=== PATIENT | male | born 2005 | race Caucasian/White ===

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

== ENCOUNTER 2024-01-22 01:18 | Emergency (ER) | payer MEDICAID, SELFPAY ==
[2024-01-22 01:19] VITALS: BP 132/70; PULSE 72; RESP 15; TEMP 36.6; O2SAT 99; BMI 23.2
--- NOTE | 2024-01-22 01:23 | EX.ED.DYSGE1 ---
HPI History of Present Illness Chief Complaint: General Illness Informant: patient Onset/Context/Timing Onset: Days (3) Context: Gradual Onset Timing: Continuous Quality: Burning Location: Throat Worsened by: Nothing Relieved by: Nothing Narrative Narrative: Patient presents with headache, nausea, and sore throat that has been getting worse over the past 3 days. Patient states it is gradually gotten worse. Patient states it is constant. Patient states his throat pain as burning. Patient states nothing makes it better and nothing makes it worse. Patient denies any fevers or chills. Patient denies any vomiting. Patient denies any visual changes or scotoma. Patient denies any shortness of breath or cough. Patient denies any urinary complaints. PFSH PFSH Medical History no medical history no medical history Home Medications ?Medication ?Instructions ?Recorded ?Last Taken ?Type naproxen 500 mg tablet (Naprosyn) 500 mg PO BID PRN pain #20 tabs 10/27/22 Unknown Rx Allergy/AdvReac Type Severity Reaction Status Date / Time No Known Allergies Allergy Verified 10/27/22 18:00 Surgical History no surgical history no surgical history Social History (Updated 01/22/24 @ 01:[address] Mesfin Willis, DO) Smoking Status: Current every day smoker tobacco type: e-cigarettes alcohol intake: current alcohol intake frequency: 0-2 drinks per day ROS ROS ED Constitutional Constitutional ED: Denies chills or fever(s) Eyes Eyes: Denies blurry vision or change in vision ENT ENT ED: Reports rhinorrhea and sore throat Cardiovascular Cardiovascular: Denies chest pain or palpitations Respiratory/Chest Respiratory/Chest: Denies cough or dyspnea Gastrointestinal Gastrointestinal: Reports nausea; Denies vomiting Genitourinary Genitourinary ED: Denies dysuria or hematuria Musculoskeletal Musculoskeletal: Denies back pain or neck pain Integumentary Denies abscess or rash Neurologic Neurologic: Reports headache(s); Denies weakness Allergic/Immunologic Allergic/Immunologic ED: Denies mouth swelling or urticaria EXAM Physical Exam Const Vital Signs: 01/22/24 01:19 01/22/24 01:22 Temperature 98 F Temperature Source Oral Pulse Rate 72 Respiratory Rate 15 Respiratory Pattern Normal Blood Pressure 132/70 H Blood Pressure Mean 90 Pulse Ox 99 Oxygen Delivery Method Room Air Positive well nourished and well developed General Appearance ED: well developed and NAD HEENT Reports moist mucous membranes HEENT Narrative: Oropharynx is clear. There are no exudates noted. Neck no lymphadenopathy, supple and no JVD Resp normal respiratory effort and clear to auscultation bilaterally Cardio regular rate and regular rhythm GI non-tender and non-distended Palpation: soft Neuro oriented x3, CN's II-XII intact bilaterally and no sensory deficits noted Sensorium / Orientation: alert Motor Exam: strength 5/5 throughout Psych mental status grossly normal MDM MDM MDM Narrative Medical decision making narrative: Differential diagnosis includes viral illness, pneumonia, dehydration, gastritis, tension headache, and sinus congestion. COVID-19, influenza, and RSV PCR will be obtained to assess for viral illness. Chest x-ray will be obtained to assess for pneumonia. CBC will be obtained to assess for leukocytosis and anemia. Basic metabolic profile will be obtained to assess for electrolyte abnormality and renal function. Lab Data Attestation: I reviewed the patient's lab results. Lab results narrative: CBC was reviewed and was within normal. Basic metabolic profile was reviewed and was within normal. COVID-19 PCR was reviewed and was negative. Influenza PCR was reviewed and was negative for influenza A and influenza B. RSV PCR was reviewed and was negative. Labs: Laboratory Results - last 24 hr 01/22/24 01:50 WBC 8.4 RBC 4.66 Hgb 13.6 Hct 40.1 MCV 86.1 MCH 29.2 MCHC 33.9 RDW Std Deviation 39.5 RDW Coeff of Marilu 12.8 Plt Count 246 MPV 9.5 Immature Gran % (Auto) 0.200 Neut % (Auto) 55.2 Lymph % (Auto) 35.7 Vance % (Auto) 7.2 Eos % (Auto) 1.3 Baso % (Auto) 0.4 Absolute Neuts (auto) 4.6 Absolute Lymphs (auto) 2.98 Nucleated RBC % 0 Sodium 139 Potassium 3.5 Chloride 104 Carbon Dioxide 30.0 Anion Gap 5 BUN 12 Creatinine 0.87 Estim Creat Clear Calc 158.40 Est GFR (MDRD) Af Amer 145 Est GFR (MDRD) Non-Af 120 BUN/Creatinine Ratio 13.8 Glucose 89 Calcium 8.7 Radiography Chest X-Ray - ED: 2 View, Read by ED Physician, Read by Radiologist and No Acute Disease Diagnostic Testing: Clinical Impression(s) from Imaging Studies Chest X-Ray 01/22/24 01:33 IMPRESSION: No radiographic evidence of acute cardiopulmonary disease. Electronically Signed: Ritchie Roque MD at 2:23 EDT Reading Location ID and State: [facility] / [place] , Service support , [place] and lateral chest x-ray was obtained. There are 2 views. On my independent interpretation, lung bynum are clear. There is normal cardiac silhouette. Bony thorax is normal. There is no acute process noted. Radiologist also interpreted the x-ray and agrees. Treatment and Re-Evaluation :: Patient was given IV fluids and Zofran. Patient was advised of his findings. Patient was advised that this may be a viral illness. Patient was instructed to follow-up with his primary care physician in 5 to 7 days. Patient was instructed to drink plenty of fluids. Patient understood and was agreeable with the plan. All questions were answered. Discharge Plan Triage Chief Complaint: General Illness ED Provider: Mesfin Willis Dx/Rx/DC Orders Clinical Impression: Viral illness, Elevated blood pressure reading without diagnosis of hypertension Instructions: ED Viral Syndrome (Adult) Prescriptions: No Action naproxen [Naprosyn] 500 mg tablet 500 mg PO BID PRN (Reason: pain) Qty: 20 0RF Primary Care Provider: Care Physician,No Primary Referrals: Bel Julien DO [Med Staff - Active Staff] - 5-7 Days Care Physician,No Primary [Primary Care Provider] - Print Language: Dominican Disposition Disposition: Home, Self Care
--- NOTE | 2024-01-22 01:33 | RAD_ITS ---
EXAM: XR CHEST, 2 VIEWS CLINICAL INDICATION: Cough Cough TECHNIQUE: Frontal and lateral views of the chest. COMPARISON: No relevant prior studies available. FINDINGS: LUNGS AND PLEURAL SPACES: Unremarkable. No consolidation or edema. No pneumothorax. No effusion. HEART: Unremarkable. Cardiac silhouette not enlarged. MEDIASTINUM: Central airways and mediastinal contour are unremarkable. BONES/JOINTS: Unremarkable. No acute fracture. SOFT TISSUES: Unremarkable. RAD/Chest PA and Lateral IMPRESSION: No radiographic evidence of acute cardiopulmonary disease. Electronically Signed: Ritchie Roque MD at 2:23 EDT Reading Location ID and State: [facility] / [place] , Service support ,
[2024-01-22] MEDS: 0.9% Normal Saline (1000mL) 1,000 ML 1000 ML IV (01:49)
[2024-01-22] MEDS: Ondansetron 4 MG/2 ML Vial IV (01:49)
[2024-01-22 02:04] LABS: Absolute Lymphocyte Count 2.98 X10^3/uL (0.83-4.51); Absolute Neutrophil Count 4.6 X10^3/uL (2.0-7.7); Basophil# 0.03 X10^3/uL; Basophil% 0.4 % (0-1); Eosinophil# 0.11 X10^3/uL; Eosinophils% 1.3 % (0-5); Hematocrit 40.1 % (40-54); Hemoglobin 13.6 g/dL (13.0-16.5); Lymphocyte # 2.98 X10^3/ul (0.83-4.51); Lymphocyte % 35.7 % (19-41); Mean Corp Hgb Conc 33.9 g/dL (32-36); Mean Corpuscular Hgb 29.2 pg (27.0-32.0); Mean Corpuscular Volume 86.1 fL (80-94); Mean Platelet Vol. 9.5 fl (6.2-12.0); Monocyte% 7.2 % (0-10); NRBC Flagged by Analyzer 0 % (0-5); Neutrophil # 4.61 X10^3/uL (2.7-7.7); Neutrophil % 55.2 % (47-70); Platelet Count 246 K/mm3 (150-450); RBC Distribution Width CV 12.8 % (11.6-14.6); RBC Distribution Width SD 39.5 fl (35.1-43.9); Red Blood Count 4.66 M/mm3 (4.6-6.2); White Blood Count 8.4 K/mm3 (4.4-11.0)
[2024-01-22 02:18] LABS: Anion Gap 5 (5-15); BUN 12 mg/dL (7-18); BUN/Creat Ratio 13.8 RATIO (10-20); Calcium,Total 8.7 mg/dL (8.5-10.1); Chloride 104 mmol/L (98-107); Creatinine, Serum 0.87 mg/dL (0.70-1.30); EST Glomerular Filtration Rate 120 mL/min (>60); Est Glom Filt Rate - Afr Amer 145 mL/min (>60); Glucose 89 mg/dL (74-106); Potassium 3.5 mmol/L (3.5-5.1); Sodium Level 139 mmol/L (136-145)
[2024-01-22 03:19] VITALS: BP 115/64; PULSE 50; RESP 16; O2SAT 98
[2024-01-22 03:45] VITALS: BP 115/64; PULSE 56; RESP 16; TEMP 36.6; O2SAT 100
== END 2024-01-22 03:46 | disposition home or self-care (01) ==
PROVIDERS: Emergency Provider Emergency Medicine; Visit Provider Emergency Medicine
DX: B34.9 Viral infection, unspecified (principal); R03.0 Elevated blood-pressure reading, without diagnosis of hypertension; F17.290 Nicotine dependence, other tobacco product, uncomplicated
CPT/HCPCS: 71046; 80048; 85025; 87631; 99283; J7030; J2405

== ENCOUNTER 2024-02-04 11:36 | Emergency (ER) | payer MEDICAID, SELFPAY ==
[2024-02-04 11:37] VITALS: BP 128/78; PULSE 78; RESP 16; TEMP 35.9; O2SAT 98; BMI 21.4
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
[2024-02-04] MEDS: Ibuprofen 600 MG Tablet PO (12:02)
--- NOTE | 2024-02-04 12:07 | EDS_ITS ---
HPI History of Present Illness Chief Complaint: Lower Extremity Injury Informant: patient Narrative Narrative: Inversion injury right lower extremity ankle and foot yesterday while at [employer]. Jumping over the railing when he came down. No head injuries. Increasing swelling and pain today. Tried icing yesterday. No medication taken. Denies history of gastric ulcers or kidney injury. Denies history of fractures. No paresthesias. PFSH PFSH Home Medications ?Medication ?Instructions ?Recorded ?Last Taken ?Type naproxen 500 mg tablet (Naprosyn) 500 mg PO BID PRN pain #20 tabs 10/27/22 Unknown Rx Allergy/AdvReac Type Severity Reaction Status Date / Time No Known Allergies Allergy Verified 02/04/24 11:36 Social History Smoking Status: Current every day smoker tobacco type: e-cigarettes alcohol intake: current alcohol intake frequency: 0-2 drinks per day ROS ROS ED Constitutional Constitutional ED: Denies chills, fever(s) or sweats ENT ENT ED: Denies dysphagia Cardiovascular Cardiovascular: Denies chest pain Respiratory/Chest Respiratory/Chest: Denies cough Gastrointestinal Gastrointestinal: Denies abdominal pain Musculoskeletal Musculoskeletal: Reports extremity pain; Denies back pain or neck pain Neurologic Neurologic: Denies paresthesias or weakness EXAM Physical Exam Const Vital Signs: 02/04/24 11:37 02/04/24 12:37 Temperature 96.6 F L 97.5 F L Temperature Source Temporal Pulse Rate 78 75 Respiratory Rate 16 16 Blood Pressure 128/78 H 128/78 H Blood Pressure Mean 94 94 Pulse Ox 98 98 Oxygen Delivery Method Room Air Positive well nourished and well developed General Appearance ED: well developed and NAD HEENT Reports moist mucous membranes normocephalic and atraumatic Eyes EOMs intact bilaterally and conjunctivae normal General Eye ED: Yes normal appearance of both eyes Neck no lymphadenopathy and supple General: Negative for tenderness Chest Wall Chest: Negative for tenderness Resp normal respiratory effort and normal air movement Effort and Inspection: symmetric chest movement; Negative for respiratory distress Cardio regular rate, regular rhythm and no murmurs Peripheral Pulses: pulses 2+ throughout GI normal to inspection, nondistended, normoactive bowel sounds and non-tender Palpation: Negative for guarding or rebound tenderness present Back/Spine no CVA tenderness and no thoracic nor lumbar tenderness Extremity Extremity Narrative: Right lower extremity negative logroll knee extensor intact no proximal fibular tenderness. No malleoli tenderness bilaterally there is swelling lateral ankle at ATFL, there is midfoot tenderness. There is no proximal fifth base tenderness. There was swelling lateral foot. Skin was intact. Soft compartments. Neuro vas intact distally. General Extremety ED: Yes edema and tenderness General Extremity: edema Neuro oriented x3 and no sensory deficits noted Sensorium / Orientation: awake and alert Skin no rashes or lesions noted and no wounds MDM MDM MDM Narrative Medical decision making narrative: Interventions / MDM: Differential diagnosis: Ankle sprain, foot sprain Diagnosis considered but do not suspect: Fracture however x-ray negative. My EKG interpretation: N/A Imaging independently reviewed and interpreted by myself: Three-view x-ray right ankle: No fracture noted. 3 view right foot: Soft tissue swelling without any fractures. External documents reviewed: N/A Test considered but not ordered:N/A ED course: Ice was continued ibuprofen given. X-ray right ankle and foot ordered for further evaluation. 1205: X-ray interpreted myself shows no fractures. James wrap Aircast crutches will be provided continue Motrin. Re-evaluation: stable Disposition discussed with patient/family/significant other: Patient Case discussed with consulting clinician: N/A This note was generated with [employer] dictation software. It may contain incorrect words, spelling, and punctuation that were not noted in checking the note before signing. Radiography Diagnostic Testing: Clinical Impression(s) from Imaging Studies Ankle X-Ray 02/04/24 11:52 IMPRESSION: Normal x-ray examination of the ankle. Electronically Signed: Quinton oCnley MD at 12:12 EDT , Foot X-Ray 02/04/24 11:52 IMPRESSION: Soft tissue swelling. Electronically Signed: Quinton Cnoley MD at 12:11 EDT , Discharge Plan Triage Chief Complaint: Lower Extremity Injury ED Provider: Raymond Orellana Dx/Rx/DC Orders Clinical Impression: Right ankle sprain, Right foot sprain Instructions: ED Foot Sprain, ED Ankle Sprain (Adult) Prescriptions: No Action naproxen [Naprosyn] 500 mg tablet 500 mg PO BID PRN (Reason: pain) Qty: 20 0RF Primary Care Provider: Care Physician,No Primary Referrals: Rose Fernandez MD [Med Staff - Forensic Chemist] - 1 Week if not improving Care Physician,No Primary [Primary Care Provider] - Activity Restrictions/Additional Instructions: X-ray right ankle foot negative. Use James wrap stirrups and crutches as needed for comfort. Continue ibuprofen up to 600 mg every 6 hours for symptom control. Ice and elevate. Print Language: Danish Disposition Disposition: Home, Self Care Discharge Date/Time: 02/04/24 12:52
[2024-02-04 12:37] VITALS: BP 128/78; PULSE 75; RESP 16; TEMP 36.4; O2SAT 98
== END 2024-02-04 12:52 | disposition home or self-care (01) ==
PROVIDERS: Emergency Provider Emergency Medicine; Visit Provider Emergency Medicine
DX: S93.401A Sprain of unspecified ligament of right ankle, initial encounter (principal); S93.601A Unspecified sprain of right foot, initial encounter; X58.XXXA Exposure to other specified factors, initial encounter; Y93.39 Activity, other involving climbing, rappelling and jumping off; Y92.512 Supermarket, store or market as the place of occurrence of the external cause; F17.290 Nicotine dependence, other tobacco product, uncomplicated; Z79.1 Long term (current) use of non-steroidal anti-inflammatories (NSAID)
CPT/HCPCS: 73610; 73630; 99284

== ENCOUNTER 2024-11-08 02:53 | Emergency (ER) | payer MEDICAID, SELFPAY ==
[2024-11-08 02:54] VITALS: BP 137/85; PULSE 82; RESP 18; TEMP 36.6; O2SAT 100; BMI 22.4
--- NOTE | 2024-11-08 03:08 | CT_ITS ---
PROCEDURE: BRAIN/HEAD WITHOUT CONTRAST 11/08/2024 REASON FOR EXAM: TRAUMA TECHNIQUE: Head CT without intravenous contrast. Coronal and Sagittal reconstruction series were provided. One or more dose reduction techniques were used (e.g., Automated exposure control, adjustment of the mA and/or kV according to patient size, use of iterative reconstruction technique. RADIATION DOSE SUMMARY: CTDlvol: 44.99 mGy DLP: 782.05 mGycm COMPARISON: None available FINDINGS: No intracranial hemorrhage, mass effect or calvarial fracture. The ventricles are within limits and midline. The vick-white differentiation appears preserved. Please see facial CT for description of the paranasal sinuses. CT/Brain/Head without Contrast IMPRESSION: No intracranial hemorrhage, mass effect or calvarial fracture. Reading Location: [id number]
--- NOTE | 2024-11-08 03:08 | CT_ITS ---
PROCEDURE: SINUS/FACIAL BONE REASON FOR EXAM: TRAUMA TECHNIQUE: CT of the paranasal sinuses without contrast. Coronal and Sagittal reconstruction series were provided. One or more dose reduction techniques were used (e.g., Automated exposure control, adjustment of the mA and/or kV according to patient size, use of iterative reconstruction technique). FINDINGS: Acute appearing minimally depressed right inferior orbital floor fracture for example coronal 46. Small amount of adjacent orbital emphysema. The globes appear intact without retro bulbar stranding. Right periorbital cheek soft tissue swelling. Right upper and lower lip soft tissue swelling. There is note of a right maxillary medial incisor dental implant with the metallic portion appearing interrupted for example coronal 30 and the tooth appearing truncated coronal 29, clinically correlate. Bilateral moderate air-fluid levels and mild mucoperiosteal thickening maxillary sinuses may represent sequela of epistaxis with pre-existing sinusitis not excluded, clinically correlate. The paranasal sinuses otherwise appear clear. Rightward deviation of the nasal septum with right nasal spur. Pedunculated soft tissue focus left periorbital soft tissues axial 57. TMJs appear normally located. [place] artifact from dental amalgam. Appearance of a left molar dental marisela and associated periapical lucencies. Mastoids appear clear. CT/Sinus/Facial Bone IMPRESSION: Acute appearing minimally depressed right inferior orbital floor fracture for e xample coronal 46. Small amount of adjacent orbital emphysema. The globes appear intact without retro bulbar stranding. Ri ght periorbital cheek soft tissue swelling. Right upper and lower lip soft tissue swelling. There is note of a right maxil byron medial incisor dental implant with the metallic portion appearing interrupted for example coronal 30 and the tooth gerardo earing truncated coronal 29, clinically correlate. Bilateral moderate air-fluid levels and mild mucoperiosteal thickening maxillar y sinuses may represent sequela of epistaxis with pre-existing sinusitis not excluded, clinically correlate. Reading Location: [id number]
--- NOTE | 2024-11-08 03:08 | CT_ITS ---
PROCEDURE: CT CHEST, ABD, PEL W/CONTRAST 11/08/2024 REASON FOR EXAM: TRAUMA TECHNIQUE: Chest, abdomen and pelvis CT with intravenous contrast. Coronal and Sagittal reconstruction series were provided. One or more dose reduction techniques were used (e.g., Automated exposure control, adjustment of the mA and/or kV according to patient size, use of iterative reconstruction technique. PATIENT PREPARATION: Per protocol ORAL CONTRAST TYPE: None. CONTRAST: 99 cc Isovue 370 IV RADIATION DOSE SUMMARY: CTDlvol: 16.85 mGy DLP: 1500 mGycm FINDINGS: CT CHEST: There is a ulbko-ww-wgqyhtcn anterior pneumothorax with areas of small ground- glass opacity within the right middle lobe and anterior aspect of the inferior right lower lobe possible areas of small pulmonary contusion. The left lung appears clear. The central airways appear patent. Findings are concerning for possible very small fracture of the upper posterior aspect of the gladiolus/sternal body for example sagittal 158. Suggestion of very small retrosternal swelling, hematoma. Measuring around 4 mm Thoracic aorta appears within limits. No pericardial or pleural effusion. Bilateral gynecomastia. Posterior right 1st rib fracture at the costovertebral junction. CT ABDOMEN/PELVIS: Artifact from arms imaged by sides. The liver, gallbladder, adrenal glands, kidneys, pancreas and spleen appear intact. No bowel dilation or free air. The bladder appears within limits. No free fluid. The other visualized osseous structures appear intact. CT/CT Chest, Abd, Pel w/Contrast IMPRESSION: There is a hpqnj-gp-[id number] anterior pneumothorax with areas of small ground-g lass opacity within the right middle lobe and anterior aspect of the inferior right lower lobe possible areas of small pulmon kalie contusion. The left lung appears clear. Findings are concerning for possible very small fracture of the upper posterior aspect of the gladiolus/sternal body for example sagittal 158. Suggestion of very small retrosternal swelling, hematoma. Measur ing around 4 mm Posterior right 1st rib fracture at the costovertebral junction. No evidence of acute intra-abdominal traumatic injury. Reading Location: [facility]
--- NOTE | 2024-11-08 03:08 | CT_ITS ---
PROCEDURE: SPINE CERVICAL WITHOUT CONTRAS 11/08/2024 REASON FOR EXAM: TRAUMA TECHNIQUE: Cervical spine CT without contrast. Coronal and Sagittal reconstruction series were provided. One or more dose reduction techniques were used (e.g., Automated exposure control, adjustment of the mA and/or kV according to patient size, use of iterative reconstruction technique RADIATION DOSE SUMMARY: CTDlvol: 21.58 mGy DLP: 478.24 mGycm COMPARISON: None available FINDINGS: No cervical spine fracture or malalignment. No prevertebral soft tissue swelling. Nondisplaced acute posterior right 1st rib fracture at the costovertebral junction. Small partially imaged apical right pneumothorax. CT/Spine Cervical without Contras IMPRESSION: Nondisplaced acute posterior right 1st rib fracture at the costovertebral junct ion. Small partially imaged apical right pneumothorax. Reading Location: [id number]
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
[2024-11-08 03:18] LABS: Absolute Lymphocyte Count 1.81 X10^3/uL (0.83-4.51); Absolute Neutrophil Count 5.9 X10^3/uL (2.0-7.7); Basophil# 0.04 X10^3/uL; Basophil% 0.5 % (0-1); Eosinophil# 0.06 X10^3/uL; Eosinophils% 0.7 % (0-5); Hematocrit 42.7 % (40-54); Hemoglobin 14.4 g/dL (13.0-16.5); Lymphocyte # 1.81 X10^3/ul (0.83-4.51); Lymphocyte % 21.9 % (19-41); Mean Corp Hgb Conc 33.7 g/dL (32-36); Mean Corpuscular Volume 86.1 fL (80-94); Mean Platelet Vol. 8.9 fl (6.2-12.0); Monocyte# 0.41 X10^3/uL; NRBC Flagged by Analyzer 0 % (0-5); Neutrophil # 5.87 X10^3/uL (2.7-7.7); Neutrophil % 71.1 % (47-70); Platelet Count 288 K/mm3 (150-450); RBC Distribution Width CV 12.7 % (11.6-14.6); RBC Distribution Width SD 39.8 fl (35.1-43.9); Red Blood Count 4.96 M/mm3 (4.6-6.2); White Blood Count 8.3 K/mm3 (4.4-11.0)
--- NOTE | 2024-11-08 03:39 | RAD_ITS ---
PROCEDURE: ELBOW MIN 3 VIEWS 11/08/2024 REASON FOR EXAM: INJURY TECHNIQUE: 3 views of the left elbow COMPARISON: None available FINDINGS: The appearance is most concerning for a nondisplaced intra-articular fracture of the olecranon as the apophysis is already expected to be fused at this age, clinically correlate. A joint effusion is suggested. No dislocation. Joint spaces appear within limits. Small cortical defect at the medial humeral metadiaphysis of unclear etiology or significance. RAD/Elbow min 3 Views IMPRESSION: The appearance is most concerning for a nondisplaced intra-articular fracture o f the olecranon as the apophysis is already expected to be fused at this age, clinically correlate. A joint effusion is bermudez ggested. No dislocation. Reading Location: [id number]
[2024-11-08 03:45] LABS: AST(SGOT) 143 U/L (<=37); Alanine Aminotransfer ALT/SGPT 95 U/L (<=46); Albumin, Serum 4.6 g/dL (3.5-5.0); Alkaline Phosphatase 53 U/L (40-129); Anion Gap 14 (5-15); BUN 8 mg/dL (4-19); BUN/Creat Ratio 9.3 RATIO (10-20); Bilirubin, Direct 0.17 mg/dL (0.00-0.30); Carbon Dioxide 25.5 mmol/L (21.0-32.0); Chloride 103 mmol/L (98-108); EST Glomerular Filtration Rate 125 (>60); Estimated Creatinine Clearance 146.85 ml/min (50-250); Globulin 2.6 g/dL (2.2-4.2); Glucose 113 mg/dL (70-99); Lipase 38 U/L (13-75); Potassium 3.6 mmol/L (3.3-5.1); Protein, Total 7.2 g/dL (5.9-8.4); Sodium Level 142 mmol/L (133-145); Total Bilirubin 0.34 mg/dL (0.00-1.30)
[2024-11-08 04:00] VITALS: BP 106/56; PULSE 76; RESP 18; O2SAT 100
[2024-11-08 05:00] VITALS: BP 110/59; PULSE 75; RESP 18; TEMP 36.7; O2SAT 100
[2024-11-08 06:00] VITALS: BP 111/69; PULSE 81; RESP 16; O2SAT 100
[2024-11-08 06:29] LABS: Bacteria 0 SEEN /hpf (None Seen); Mucous, Urine 0 SEEN /hpf (<or=2+); Squamous Epithelial Cells - UA 0 SEEN /hpf (0-5); White Blood Cells 0 SEEN /hpf (0-5)
[2024-11-08 06:31] LABS: Color, Urine Yellow (Yellow); Glucose, Dipstick Normal (Normal); Ketone-Dipstick Negative (Negative); Leukocyte Esterase-Dipstick Negative /ul (Negative); Nitrite-Dipstick Negative (Negative); Occult Blood-Urine 250 /ul (Negative); Protein-Dipstick 30 mg/dl (Negative); Urine Bilirubin Dipstick Negative (Negative); Urine Clarity Clear (Clear); Urine Urobilinogen Normal (Normal); Urine pH 6.5 (5.0 - 8.0)
[2024-11-08 06:53] LABS: Red Blood Cells-Urine 0-5 SEEN /hpf (0-5)
== END 2024-11-08 06:45 | disposition short-term general hospital (02) ==
PROVIDERS: Emergency Provider Emergency Medicine; Visit Provider Emergency Medicine
DX: S27.0XXA Traumatic pneumothorax, initial encounter (principal); S02.31XA Fracture of orbital floor, right side, initial encounter for closed fracture; S22.22XA Fracture of body of sternum, initial encounter for closed fracture; S22.31XA Fracture of one rib, right side, initial encounter for closed fracture; S52.025A Nondisplaced fracture of olecranon process without intraarticular extension of left ulna, initial encounter for closed fracture; S01.81XA Laceration without foreign body of other part of head, initial encounter; S01.511A Laceration without foreign body of lip, initial encounter; S70.02XA Contusion of left hip, initial encounter; S30.1XXA Contusion of abdominal wall, initial encounter; V99.XXXA Unspecified transport accident, initial encounter; F10.129 Alcohol abuse with intoxication, unspecified; Y90.6 Blood alcohol level of 120-199 mg/100 ml; F17.290 Nicotine dependence, other tobacco product, uncomplicated
CPT/HCPCS: 29105; 29405; 70450; 70486; 71260; 72125; 73080; 74177; 80048; 80076; 81001; 82077; 83690; 85025; 99285; Q9967; A4216

== ENCOUNTER 2025-03-09 16:57 | Outpatient (CLI) | payer MEDICAID, SELFPAY | END 2025-03-09 23:59 | disposition home or self-care (01) | LOC: LABSPEC 17:01 | PROVIDERS: Referring Provider Surgery Plastic and Reconstructive Surgery; Visit Provider Surgery Plastic and Reconstructive Surgery | DX: D22.39 Melanocytic nevi of other parts of face (principal) | CPT/HCPCS: 88305; 88342 ==